=== PATIENT | female | born 1960 | race Caucasian/White ===

== ENCOUNTER 2020-06-29 18:43 | Emergency (ER) | payer OTHER ==
[~2020-06-29] VITALS: Ht 162.6 cm; Wt 70.3 kg
[2020-06-29] MEDS ORDERED: LOTREL 5-20 MG1 CAP PO (18:55)
[2020-06-29] MEDS ORDERED: BISOPROLOL-HCT1 EAC1 PO (18:55)
[2020-06-29] MEDS ORDERED: CRESTOR20 MG PO (18:55)
[2020-06-29] MEDS ORDERED: FOSAMAX70 MG PO (18:56)
[2020-06-29] MEDS ORDERED: MOTION RELIEF25 MG PO (20:18)
== END 2020-06-29 21:00 | disposition home or self-care (01) ==
LOC: ER 18:43
DX: R42 Dizziness and giddiness (principal)

== ENCOUNTER 2020-08-28 01:32 | Emergency (ER) | payer OTHER ==
[~2020-08-28] VITALS: Ht 160 cm; Wt 71.7 kg
[~2020-08-28 01:32] MED LIST: BISOPROLOL-HCT1 EAC1 PO; CRESTOR20 MG PO; FOSAMAX70 MG PO; LOTREL 5-20 MG1 CAP PO; MOTION RELIEF25 MG PO
[2020-08-28] MEDS ORDERED: CIPRO500 MG PO (05:12)
== END 2020-08-28 05:18 | disposition home or self-care (01) ==
LOC: ER 01:32
DX: R35.8 Other polyuria (principal)

== ENCOUNTER 2023-11-19 14:24 | Emergency (ER) | payer OTHER ==
[~2023-11-19] VITALS: Ht 160 cm; Wt 68.0 kg
[~2023-11-19 14:24] MED LIST changes: +CIPRO500 MG PO
[2023-11-19] MEDS ORDERED: CELEXA20 MG PO (14:35)
[2023-11-19 16:42] LABS: HEMATOCRIT 34.5 % (36.0-45.00); HEMOGLOBIN 11.7 g/dL (12.0-15.00); MEAN CELL VOLUME 90.3 fL (80.00-100.00); MEAN CORPUSCULAR HEMOGLOBIN 30.7 pg (27.00-32.0); PLATELET COUNT 213 K/uL (150-450); RED BLOOD COUNT 3.82 M/uL (4.00-6.00); RED CELL DISTRIBUTION WIDTH 13.2 % (11.5-14.5)
== END 2023-11-19 17:10 | disposition home or self-care (01) ==
LOC: ER 14:24
PROVIDERS: General Practice
DX: R21 Rash and other nonspecific skin eruption (principal)

== ENCOUNTER 2025-06-06 11:21 | Emergency (ER) | payer OTHER ==
[~2025-06-06] VITALS: Ht 160 cm; Wt 69.4 kg
[~2025-06-06 11:21] MED LIST changes: +CELEXA20 MG PO
[2025-06-06] MEDS ORDERED: 0.9 % SODIUM CHLORIDE 500 ML IV ONE (14:45)
[2025-06-06] MEDS ORDERED: KETOROLAC TROMETHAMINE 30 MG VIAL IV ONE (14:45)
[2025-06-06] MEDS ORDERED: FAMOTIDINE/PF 20 MG/2 ML VIAL IV ONE (14:45)
[2025-06-06] MEDS ORDERED: KETOROLAC TROMETHAMINE 30 MG VIAL ONE (15:03)
[2025-06-06] MEDS ORDERED: FAMOTIDINE/PF 20 MG/2 ML VIAL ONE (15:04)
[2025-06-06 15:32] LABS: BASO % 0.3 % (0.1-1.2); EOS # 0.43 (0.04-0.54); EOS % 7.0 % (0.7-7.0); LYMPH # 1.35 (1.18-3.74); LYMPH % 22.1 % (19.3-53.1); MEAN PLATELET VOLUME 9.80 fl (9.4-12.4); MONO # 0.44 (0.24-0.82); MONO % 7.2 % (4.7-12.5); NEUT # 3.87 (1.56-6.13); NEUT % 63.2 % (34.0-71.1); RED CELL DISTRIBUTION WIDTH 12.0 % (11.6-14.4)
[2025-06-06 15:59] LABS: ALT/SGPT 23.0 U/L (12-78); AST/SGOT 17.0 U/L (15-37); BILIRUBIN TOTAL 0.72 mg/dL (0.3-1.2); BUN CREA RATIO 9.0 (7.0-25.0); CREATININE SERUM 0.9 mg/dL (0.55-1.02); GFR 62.45; GLOBULINA 3.8 G/DL (2.4-3.5); GLUCOSE FASTING 103.0 mg/dL (65-100); OSMOLALITY SERUM 280.0 MOSM/KG (275-295)
[2025-06-06 16:12] LABS: URINE APPEARANCE Clear; URINE BILIRRUBIN Negative (NEGATIVE); URINE BLOOD Negative; URINE COLOR Yellow; URINE GLUCOSE Negative (NEGATIVE); URINE KETONE Negative (NEGATIVE); URINE LEUKOCYTE Trace; URINE NITRATE Negative; URINE PROTEIN Negative (NEGATIVE); URINE UROBILINOGEN 0.2 E.U./dl
[2025-06-06 16:16] LABS: URINE BACTERIA 57.6 uL (0.0-1933); URINE EPITHELIAL CELLS 2.3 uL (0.0-38.8); URINE RBC 9.6 uL (0.0-20.8); URINE WBC 5.3 uL (0.0-23.2)
[2025-06-06 16:21] LABS: URINE CAST 0.00 uL (0.0-1.40)
== END 2025-06-06 18:35 | disposition home or self-care (01) ==
LOC: ER 11:22
PROVIDERS: General Practice
DX: R10.31 Right lower quadrant pain (principal); R10.9 Unspecified abdominal pain; I10 Essential (primary) hypertension
CPT/HCPCS: 36415; 74177; 96365; 96366; 99284; J1885; J3490; J7042; Q9965